=== PATIENT | female | born 1930 | race Caucasian/White ===

== ENCOUNTER 2018-02-28 05:58 | Outpatient (CLI) | payer MEDICARE ==
[~2018-02-28] VITALS: Ht 162.6 cm; Wt 74.7 kg
[2018-02-28] VITALS (13 sets, daily range): BP systolic 116–179; BP diastolic 52–94; PULSE 61–72; TEMP 98
[~2018-02-28 05:58] MED LIST: ALDACTONE 25MG25 MG PO; CALTRATE-600 W600 MG PO; HCTZ 25MG25 MG PO; LEVOTHYROXINE0.2 MG PO; OCUVITE PO; PROTONIX 40MG T40 MG PO; VOLTAREN25 MG PO
[2018-02-28] MEDS ORDERED: LUTEIN6 MG PO (07:16)
[2018-02-28] MEDS ORDERED: COZAAR 25MG25 MG/TAB PO (07:17)
[2018-02-28] MEDS ORDERED: LOPRESSOR 225 MG/TAB PO (07:18)
[2018-02-28] MEDS ORDERED: NORVASC 5MG5 MG/TAB PO (07:19)
== END 2018-02-28 09:59 | disposition home or self-care (01) ==
LOC: COL.RAD 05:58
DX: C50.411 Malignant neoplasm of upper-outer quadrant of right female breast (principal); J94.8 Other specified pleural conditions; J90 Pleural effusion, not elsewhere classified; Z90.11 Acquired absence of right breast and nipple
CPT/HCPCS: 25581